=== PATIENT | female | born 1970 | race Caucasian/White ===

== ENCOUNTER 2022-11-06 10:28 | Emergency (ER) | payer OTHER, SELFPAY ==
--- NOTE | ~2022-11-06 | XR_ITS ---
EXAMINATION: XR ribs LT 2V INDICATION: Left chest pain TECHNIQUE: 3 views of the left ribs were obtained. COMPARISON: None. FINDINGS: The visualized lungs are free of acute opacities. No pleural effusion or pneumothorax. The cardiomediastinal silhouette is normal. There is a possible nondisplaced anterolateral fracture of th e left ninth rib. There is moderate osteoarthritis of the acromioclavicular joint and mild osteoarthr itis of the glenohumeral joint. At least moderate cervical spondylosis is noted. IMPRESSION: 1. Possible nondisplaced anterolateral fracture of the left ninth rib. Reviewed, dictated and finalized at location []
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
[2022-11-06 10:43] VITALS: BP 118/69; PULSE 108; RESP 16; TEMP 36.7; O2SAT 100
[2022-11-06 10:46] VITALS: BP 118/69; PULSE 108; RESP 16; TEMP 36.7; O2SAT 100
== END 2022-11-06 11:44 | disposition home or self-care (01) ==
PROVIDERS: Emergency Provider Nurse Practitioner
DX: S22.32XA Fracture of one rib, left side, initial encounter for closed fracture (principal); X58.XXXA Exposure to other specified factors, initial encounter; M54.50 Low back pain, unspecified; E78.00 Pure hypercholesterolemia, unspecified; E11.9 Type 2 diabetes mellitus without complications; F41.9 Anxiety disorder, unspecified; Z79.84 Long term (current) use of oral hypoglycemic drugs; Z79.82 Long term (current) use of aspirin
CPT/HCPCS: 71100; 99203; G0463